=== PATIENT | female | born 1965 | race Two or more races ===

== ENCOUNTER 2019-07-21 06:45 | Day surgery (SDC) | payer OTHER ==
[~2019-07-21 06:45] MED LIST: INTESTINEX680 M1 PO; LEVO-T125 MCG PO; LEVSIN/SL0.125 MG SL; SIMETHICONE80 MG PO; VITAMIN C500 M6 PO
== END 2019-07-21 17:25 | disposition home or self-care (01) ==
LOC: CIR.AMB 06:45
DX: D05.11 Intraductal carcinoma in situ of right breast (principal)